=== PATIENT | male | born 1995 | race Caucasian/White ===

== ENCOUNTER 2024-08-01 22:53 | Emergency (ER) | payer OTHER ==
[~2024-08-01] VITALS: Ht 182.9 cm; Wt 95.5 kg
--- NOTE | 2024-08-01 23:31 | Physician Documentation ---
History of Present Illness ~ Chief Complaint: Toe pain Stated Complaint: TOE INFECTION Time Seen by MD: 23:19 OK to notify your PCP?: Yes Source: patient Mode of Arrival: POV Exam Limitations: no limitations HPI This is a 29-year-old male who comes in for redness and swelling of the left foot and some of the toes of the left foot. The patient was states his feet get very sweaty and he has chronic athlete's foot. He was cracks and fissures in the between his toes on both of his feet however he began getting redness and swelling in the webbing between the 3rd and 4th toes of the left foot. Now he has redness and swelling of the wraps around the 3rd toe and extends with the top of his foot. He went to an urgent care today and was prescribed antibiotics but he was not sure what antibiotic he was prescribed and he has not picked him up from the pharmacy. The patient was here today because he wants a 2nd opinion. He was complaining of aching throbbing sensation which prompted him to come to the ER today. He denies red streaking up the leg. He denies fevers or chills. Medication Reconciliation Allergies: Coded Allergies: No Known Allergies (Unverified , 08/01/24) Physical Exam Vital Signs: Heart Rate: 94, Respiratory Rate: 17, BP: 159/107, Pulse Oximetry: 98, Weight: 95.450 Oxygen Flow Rate: 0 Pulse Oximetry Reflects: adequate oxygenation General Appearance: alert, WD/WN, no apparent distress Feet To inspection of the left foot there is fusiform erythema and edema around the 3rd toe. There is erythema and edema that extends up to the dorsum of the distal foot. It does not not extend past the midfoot. It does not communicate to the plantar aspect of the foot. There is cracks and fissures in between the toes most pronounced he was between the 3rd and 4th toe wear believe the ce llulitis began. No ascending lymphangitis. No fluctuance or purulent discharge Progress Results/Orders Reviewed/noted all lab results: Yes Results/Orders Orders - MELINDA AGUIAR Toe(S) (08/01/24 23:19) Ceftriaxone Im Kit W/Lidocaine (Rocephin (08/01/24 23:25) Hydrocodone/Apap 5/325mg Tab ([place] 5/32 (08/01/24 23:25) Completed Orders - MELINDA AGUIAR Toe(S) (08/01/24 23:19) Vital Signs 08/01/24 22:57 Pulse 94 Resp 17 B/P (MAP) 159/107 Pulse Ox 98 O2 Flow Rate 0 EKG/XRAY/CT/US/VASC/MRI Bone/Soft Tissue X-Ray (Ext.) : Interpreted By: self Additional Comment X-ray left foot three-view interpreted by me: No obvious fracture. No malalignment or dislocation. Mild soft tissue edema of the dorsum of the foot. no cutaneous gas or foreign body. Medical Decision Making Findings The patient has chronic athlete's foot secondary to dyshidrosis. He gets cracks and fissures between his toes and it appears so he developed cellulitis from one of the cracks and fissures and between the fold of the 3rd and 4th toe. He was already seen by an urgent care earlier today and prescribed an antibiotic but he was not sure what antibiotic he was prescribed and he was having more aching throbbing pain making it difficult for him to sleep so he decided to come to the ER. He has not no signs of systemic infection or ascending lymphangitis. I gave the patient Rocephin 1 g IM here. I do not know what the other provider prescribe the patient so I am going to give him Keflex 500 mg 4 times a day for 10 days and chlorhexidine soap to soak his foot in a couple of times a day. I instructed him to dry well between his toes after soaking the foot in the antibacterial soap and water. Elevate the leg frequently. Follow up with the primary care physician for recheck in the next couple of days and return to the ER for any worsening or concerning symptoms. Additional Comment Cellulitis of left foot. Tinea pedis. Departure Disposition: 01 HOME / SELF CARE / HOMELESS Impression: Primary Impression: Cellulitis of left foot Condition: Stable Discharge Instructions: Cellulitis, Adult Additional Instructions: This is take the antibiotics as prescribed. Elevate the foot frequently. I will prescribe chlorhexidine soap and you can purchase this [id number] and I suggest makes in his in a bowl of warm water a couple of times a day and soaking her foot in it. Be sure to dry thoroughly between the toes. Follow up with the primary care physician for recheck in the next couple of days. Return to the ER for increased redness, swelling, pain, red streaking up the leg, fever chills or any concerns. Referrals: NO PRIMARY CARE PROVIDER (PCP) Prescriptions Ibuprofen (Ibu) 600 Mg Tablet 1 TAB PO Q6H for [id number] pain, #20 TAB 0 Refills Prov: MELINDA AGUIAR 08/01/24 Hydrocodone Bit/Acetaminophen 5/325 MG ([place] 5/325 MG) 5 Mg/325 Mg Tablet 1 TAB PO Q6H PRN for pain, #10 TAB Prov: MELINDA AGUIAR 08/01/24 Cephalexin*Monohydrate* (Keflex*) 500 Mg Capsule 1 CAP PO Q6H for 10 Days, #40 CAP Prov: MELINDA AGUIAR 08/01/24 Signature Scribe Signature: No scribe Attestation: The note accurately reflects work and decisions made by me.Melinda BERRY 08/01/24 23:34 MELINDA AGUIAR Aug 01, 2024 23:31
[2024-08-01] MEDS ORDERED: IBUP-862 PO (23:33)
[2024-08-01] MEDS ORDERED: CEPH-585 PO (23:33)
[2024-08-01] MEDS ORDERED: HYDR-3965 PO (23:33)
[2024-08-01] MEDS: HYDROcodone/acetaminophen 5mg/325mg tablet PO ONE (23:35)
[2024-08-01] MEDS: CefTRIAXone 1000mg IM Kit (w/lidocaine diluent) IM ONE (23:35)
[2024-08-01 23:44] VITALS: BP 155/99; PULSE 90; RESP 18; TEMP 98.6; O2SAT 99
--- NOTE | 2024-08-02 02:04 | RADIOLOGY REPORT ---
Clinical History TOE PAIN LEFT Comparison None Technique: left toes 3 views Without Contrast SHARONA MICHAEL, [id number] Findings: Bones: No displaced fracture. Soft tissues: No swelling. No foreign body Joints: Visualized joints are within normal limits. Impression: 1. No acute fracture or dislocation. This report was electronically signed by Julio Boo MD on 08/02/2024 2:00:20 AM.
== END 2024-08-01 23:45 | disposition home or self-care (01) ==
LOC: ER 22:55
DX: L03.116 Cellulitis of left lower limb (principal)
CPT/HCPCS: 73660; 96372; 99283; J0696